=== PATIENT | male | born 1990 | race Caucasian/White ===

== ENCOUNTER 2019-03-03 10:30 | Outpatient (RCR) | payer OTHER, SELFPAY | END 2019-03-03 10:35 | disposition home or self-care (01) | LOC: OT 10:30 | PROVIDERS: Visit Provider Physical Medicine & Rehabilitation | DX: M79.621 Pain in right upper arm (principal) | CPT/HCPCS: 97110; 97140; 97166 ==

== ENCOUNTER 2019-03-31 10:00 | Outpatient (RCR) | payer OTHER, SELFPAY | END 2019-03-31 10:05 | disposition home or self-care (01) | LOC: PT 10:00 | PROVIDERS: Visit Provider Physical Medicine & Rehabilitation | DX: M79.604 Pain in right leg (principal); M79.605 Pain in left leg | CPT/HCPCS: 97010; 97014; 97016; 97110; 97140; 97163; G0283 ==

== ENCOUNTER → 2019-12-09 09:47 | Outpatient (CLI) | payer MEDICAID, SELFPAY ==
--- NOTE | 2019-12-09 09:52 | XR_ITS ---
PROCEDURE: XR KNEE LT 4V CLINICAL INDICATION: knee pain COMPARISON: No exams were available for comparison FINDINGS: There are no prior radiographs for comparison. There is a partially visualized femoral intramedullary christina anchored distally by transverse screws. The medial and the lateral compartments are unremarkable. There is superior subluxation of a patella fragment. The lower patellar fragments are not visualized and may have been resected. Cortical pin defects are noted within the proximal tibial diaphysis. Joint effusion and pretibial soft tissue edema is noted. IMPRESSION: Pretibial soft tissue edema, small joint effusion, intramedullary femoral christina, superior subluxed patellar fragment as above. Dictated by: Deepak Longoria 12/09/2019 10:24 Electronically signed by Deepak Longoria in [place] 12/09/2019 10:24
--- NOTE | 2019-12-09 11:24 | XR_ITS ---
PROCEDURE: XR FEMUR LT 2V CLINICAL INDICATION: knee pain COMPARISON: No exams were available for comparison FINDINGS: There is an intramedullary christina through the femoral diaphysis traversing a remote mid femoral diaphyseal fracture. Pretibial edema, small amount of joint effusion, and a superiorly subluxed patella fragment is noted. IMPRESSION: As above Dictated by: Deepak Longoria 12/09/2019 11:42 Electronically signed by Deepak Longoria in [place] 12/09/2019 11:42
== END ==
PROVIDERS: Visit Provider Orthopaedic Surgery
DX: M25.562 Pain in left knee (principal)
CPT/HCPCS: 73552; 73564

== ENCOUNTER → 2019-12-10 14:54 | Outpatient (CLI) | payer MEDICAID, SELFPAY ==
--- NOTE | 2019-12-10 15:00 | MR_ITS ---
PROCEDURE: MR KNEE LT WO CON CLINICAL INDICATION: Left knee pain Knee pain, pain when bending COMPARISON: XR KNEE LT 4V from 12/09/2019 TECHNIQUE: Routine multiplanar multi echo sequences are performed without gadolinium enhancement. FINDINGS: Artifact is present from intramedullary christina within the distal femur. The cruciate ligaments appear intact. The collateral ligaments appear intact. The patella is superiorly subluxed and is fragmented with the inferior aspect of patella not visualized and may be due to prior resection. The mid and superior aspect of the patellar tendon is not visualized consistent with torn patellar tendon. The inferior aspect of the patellar tendon is visualized with some artifact along its anterior aspect possibly due to metal shavings from previous surgery. The quadriceps tendon does appear intact. There is diffuse heterogeneous signal intensity in the infrapatellar region consistent with fluid/edema. No meniscal tear is evident. Fluid is also present in the knee joint. IMPRESSION: 1. There is tear of the patellar tendon with comminuted fracture of the patella and missing fragments along the inferior aspect of the patella with superior subluxation of the patella and fluid and edema within the infrapatellar region. The patellar tendon is much shorter than expected and could be foreshortened/retracted versus prior resection. 2. Artifact from intramedullary christina. 3. No evidence of meniscal or cruciate ligament tear Dictated by: Tevin Lazo MD 12/12/2019 08:24 Electronically signed by Tevin Lazo MD in [place] 12/12/2019 08:24
== END ==
PROVIDERS: PCP Orthopaedic Surgery; Visit Provider Orthopaedic Surgery
DX: M25.562 Pain in left knee (principal)
CPT/HCPCS: 73721

== ENCOUNTER → 2022-09-03 11:02 | Outpatient (CLI) | payer MEDICAID, SELFPAY | PROVIDERS: PCP Student in an Organized Health Care Education/Training Program; Visit Provider Student in an Organized Health Care Education/Training Program | DX: U07.1 COVID-19 | CPT/HCPCS: C9803; U0003; U0005 ==